=== PATIENT | male | born 1955 | race Caucasian/White ===

== ENCOUNTER 2017-09-25 11:59 | Emergency (ER) | payer BC ==
[2017-09-25] MEDS ORDERED: Adacel (T-DAP) 0.5 ML VIAL ONE (12:30)
[2017-09-25] MEDS ORDERED: Bacitracin Zinc 1 Packet ONE (13:05)
[2017-09-25] MEDS ORDERED: Cephalexin 250 MG CAP ONE (13:13)
[2017-09-25] MEDS ORDERED: HYDROcodone/Acetaminophen 10/325 mg Tablet ONE (13:13)
--- NOTE | 2017-09-25 21:14 | RAD ---
LEFT FOURTH FINGER: 09/25/2017 FINDINGS: A soft tissue laceration of the fourth finger is seen. There are densities in the soft tissues that are either foreign bodies or chips of bone. While a major fracture or dislocation is not seen, there does appear to be some avulsion from the base of the distal phalanx and distal end of the middle pha lanx. IMPRESSION: Small cortical fractures at the site of injury with laceration and some soft tissues foreign bodies p resent. POS: HOME
== END 2017-09-25 13:23 | disposition home or self-care (01) ==
LOC: BURERS 11:59
DX: S62.635B Displaced fracture of distal phalanx of left ring finger, initial encounter for open fracture (principal); E11.9 Type 2 diabetes mellitus without complications; I10 Essential (primary) hypertension; Z79.84 Long term (current) use of oral hypoglycemic drugs; Z79.1 Long term (current) use of non-steroidal anti-inflammatories (NSAID); Z79.899 Other long term (current) drug therapy; Z23 Encounter for immunization; W29.3XXA Contact with powered garden and outdoor hand tools and machinery, initial encounter
CPT/HCPCS: 12002; 90471; 90715; J2001

== ENCOUNTER 2021-04-12 04:12 | Emergency (ER) | payer BC, MEDICARE ==
[2021-04-12 04:36] LABS: Bilirubin Negative (Negative); Blood, Urine Negative (Negative); Clarity Clear (Clear); Glucose, Urine (Dipstick) 500 mg/dL (Negative); Ketone, Urine Trace mg/dL (Negative); Leukocyte Negative (Negative); Nitrite Negative (Negative); Protein, Urine (Dipstick) Trace mg/dL (Neg-Trace); Urobilinogen 0.2 mg/dL (Less than 2)
[2021-04-12 04:38] LABS: Specific Gravity, Urine 1.023 (1.002-1.036)
[2021-04-12] MEDS ORDERED: HYDROcodone/Acetaminophen 10/325 mg Tablet ONE (04:52)
[2021-04-12] MEDS ORDERED: Ondansetron ODT 4 MG TAB ONE (04:54)
[2021-04-12] MEDS ORDERED: Ketorolac Tromethamine 30 MG/ML VIAL ONE (05:05)
[2021-04-12] MEDS ORDERED: Dicyclomine 20 MG TAB ONE (06:05)
== END 2021-04-12 06:06 | disposition home or self-care (01) ==
LOC: BURERS 04:12
DX: N13.2 Hydronephrosis with renal and ureteral calculous obstruction (principal); E11.9 Type 2 diabetes mellitus without complications; I10 Essential (primary) hypertension; Z79.84 Long term (current) use of oral hypoglycemic drugs; Z79.899 Other long term (current) drug therapy
CPT/HCPCS: 74176; 81003; 96372; J1885; Q0162

== ENCOUNTER 2024-03-06 16:30 | Emergency (ER) | payer MEDICARE, BC ==
[~2024-03-06 16:30] MED LIST: Aspirin Chewable 81 MG TAB ONE; Heparin 10,000 UNITS/ 10 ML VIAL ONE; Heparin 25,000 UNITS/D5W 500 ml bag ONE; Metoprolol Tartrate 5 MG (5 mL) VIAL ONE; Nitroglycerin 0.4 MG TAB (25 Tab Bottle) ONE
[2024-03-06] MEDS ORDERED: Morphine 4 MG/ML VIAL ONE (16:54)
== END 2024-03-06 17:04 | disposition short-term general hospital (02) ==
LOC: BURERS 16:30
DX: I21.09 ST elevation (STEMI) myocardial infarction involving other coronary artery of anterior wall (principal); I21.29 ST elevation (STEMI) myocardial infarction involving other sites
CPT/HCPCS: J1644; J2270

== ENCOUNTER 2024-08-27 20:58 | Emergency (ER) | payer MEDICARE, BC ==
[2024-08-27] MEDS ORDERED: Bacitracin 1 PK ONE (21:15)
[2024-08-27] MEDS ORDERED: Lidocaine 1% (PF) 30 ML VIAL ONE (21:16)
[2024-08-27] MEDS ORDERED: Boostrix 0.5 ML (Tdap) VIAL (>/=7 yrs of age) ONE (21:16)
[2024-08-27] MEDS ORDERED: Lidocaine 1% PF 5 ML VIAL ONE (21:17)
== END 2024-08-27 21:56 | disposition home or self-care (01) ==
LOC: BURERS 20:58
DX: S61.412A Laceration without foreign body of left hand, initial encounter (principal); I25.2 Old myocardial infarction; E11.9 Type 2 diabetes mellitus without complications; W26.0XXA Contact with knife, initial encounter; Z23 Encounter for immunization
CPT/HCPCS: 12001; 90471; 90715

== ENCOUNTER 2025-06-22 01:25 | Emergency (ER) | payer MEDICARE, BC ==
[2025-06-22] MEDS ORDERED: Aspirin Chewable 81 MG TAB ONE (01:55)
[2025-06-22] MEDS ORDERED: Pantoprazole 40 MG VIAL ONE (01:56)
[2025-06-22] MEDS ORDERED: Mag-Al Plus 1200/1200/120 MG (30 mL) UDCUP ONE (01:56)
[2025-06-22 02:20] LABS: ALT (SGPT) 70 U/L (Less than 45); AST (SGOT) 152 U/L (11-34); Albumin 4.1 g/dL (3.1-4.5); Alkaline Phosphatase 62 U/L (40-110); Anion Gap 15 mmol/L (10-20); BUN (Urea Nitrogen) 16 mg/dL (8.4-25.7); Bilirubin, Total 0.9 mg/dL (0.3-1.2); Calc. Creatinine Clearance 0 mL/min (70-130); Calcium 8.8 mg/dL (7.8-10.44); Carbon Dioxide 22 mmol/L (23-31); Chloride 107 mmol/L (98-107); Globulin 2.0 g/dL (2.4-3.5); Glucose 141 mg/dL (83-110); Lipase 34 U/L (8-78); Potassium 3.4 mmol/L (3.5-5.1); Sodium 141 mmol/L (136-145); Troponin I Less than 0.010 ng/mL (< 0.028)
[2025-06-22 02:21] LABS: Hematocrit 40.5 % (42.0-52.0); Hemoglobin 14.7 g/dL (14.0-18.0); Mean Corpuscular Hemoglobin 31.1 pg (27.0-31.0); Mean Corpuscular Volume 85.8 fl (78.0-98.0); Platelet Count 163 10x3/uL (130-400); Red Blood Cell (RBC) Count 4.72 mill/uL (4.70-6.10); White Blood Cell (WBC) Count 7.9 10x3/uL (4.8-10.8)
[2025-06-22 03:00] LABS: MDiff Complete? YES
[2025-06-22] MEDS ORDERED: Simethicone Chewable 80 MG TAB ONE (03:51)
[2025-06-22 04:50] LABS: Troponin I Less than 0.010 ng/mL (< 0.028)
== END 2025-06-22 04:59 | disposition home or self-care (01) ==
LOC: BURERS 01:25
DX: K80.20 Calculus of gallbladder without cholecystitis without obstruction (principal); R10.13 Epigastric pain; I10 Essential (primary) hypertension; E11.9 Type 2 diabetes mellitus without complications; I25.2 Old myocardial infarction; Z95.5 Presence of coronary angioplasty implant and graft
CPT/HCPCS: 71045; 74177; 80053; 83690; 83880; 84484; 85025; 93005; J2470